=== PATIENT | male | born 1970 ===

== ENCOUNTER 2021-01-27 08:07 | Day surgery (SDC) | payer OTHER | END 2021-01-27 15:30 | disposition home or self-care (01) | LOC: AMB-ENDOS 08:07 | PROVIDERS: ATTEND Colon & Rectal Surgery | DX: K57.32 Diverticulitis of large intestine without perforation or abscess without bleeding (principal); K64.8 Other hemorrhoids; Z12.11 Encounter for screening for malignant neoplasm of colon ==

== ENCOUNTER 2021-08-24 03:59 | Emergency (ER) | payer OTHER ==
[~2021-08-24] VITALS: Ht 172.7 cm; Wt 93.0 kg
== END 2021-08-24 13:25 | disposition home or self-care (01) ==
LOC: ER 03:59
DX: N23 Unspecified renal colic (principal)
CPT/HCPCS: 74177; Q9965